=== PATIENT | male | born 1990 | race Caucasian/White ===

== ENCOUNTER 2016-09-22 20:39 | Emergency (ER) | payer BC ==
--- NOTE | 2016-09-22 21:22 | RAD ---
INDICATION: Left knee injury. TECHNIQUE: 4 views of the left knee were obtained. FINDINGS: The bones are in normal alignment. No joint effusion or fracture is seen. There is a small benign sclerotic lesion in the proximal tibial metaphysis. Joint spaces appear maintained. IMPRESSION: NO EVIDENCE FOR FRACTURE.
--- NOTE | 2016-09-22 21:43 | UC ---
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 HAS HISTORY OF PAST PATELLAR DISLOCATION TO SAME KNEE. UNABLE TO BEAR WEIGHT AFTER INJURY DUE TO IMMEDIATE FEELING OF LEFT KNEE INSTABILITY. NO DEFORMITY OF KNEE NOTED. KNEE CONTINUES TO FEEL UNSTABLE. - History of Current Complaint Chief Complaint: UCLowerExtremity Stated Complaint: knee injury Time Seen by Provider: 09/22/16 20:52 Hx Obtained From: Patient Onset/Duration: Sudden Onset, Lasting Hours, Still Present Severity Initially: Moderate Severity Currently: Moderate Character: Dull, Aching, Spasmodic Aggravating Factor(s): Movement, Weight Bearing, Prolonged Standing, Stairs Alleviating Factor(s): Rest, Position, Cold Associated Signs And Symptoms: Positive: Swelling. Negative: Numbness, Tingling Able to Bear Weight: No - Risk Factors Septic Arthritis Risk Factor: Negative Gout Risk Factor: Negative - Allergies/Home Medications Allergies/Adverse Reactions: Allergies Allergy/AdvReac Type Severity Reaction Status Date / Time Penicillins Allergy Severe Hives Verified 09/22/16 20:50 Sulfa Antibiotics Allergy Severe Hives Verified 09/22/16 20:50 Home Medications: Home Medications Ibuprofen TAB* [Advil TAB*] 600 mg PO PRN 09/22/16 [History] PMH/Surg Hx/FS Hx/Imm Hx Previously Healthy: Yes - Surgical History Surgical History: Yes Surgery Procedure, Year, and Place: 7 SURGERIES ON RIGHT FOOT, TONSILLECTOMY - Family History Known Family History: Negative: Other - NO JOINT LAXITY; CONNECTIVE TISSUE DISORDER - Social History Occupation: Employed Full-time Lives: With Family Alcohol Use: None Substance Use Type: None Smoking Status (MU): Never Smoked Tobacco Review of Systems Constitutional: Negative Skin: Negative Eyes: Negative ENT: Negative Respiratory: Negative Cardiovascular: Negative Gastrointestinal: Negative Genitourinary: Negative Motor: Negative Neurovascular: Negative Musculoskeletal: Arthralgia, Myalgia Neurological: Negative Psychological: Negative All Other Systems Reviewed And Are Negative: Yes Physical Exam Triage Information Reviewed: Yes Appearance: Well-Appearing, No Pain Distress, Well-Nourished Vital Signs: Initial Vital Signs Temp 99 F 09/22/16 20:46 Pulse 73 09/22/16 20:46 Resp 16 09/22/16 20:46 BP 148/79 09/22/16 20:46 Pulse Ox 98 09/22/16 20:46 Vital Signs Reviewed: Yes Eye Exam: Normal Eyes: Positive: Conjunctiva Clear ENT Exam: Normal ENT: Positive: Normal ENT inspection Dental Exam: Normal Neck exam: Normal Neck: Positive: Supple, Nontender, No Lymphadenopathy Respiratory Exam: Normal Respiratory: Positive: Chest non-tender, Lungs clear, Normal breath sounds, No respiratory distress, No accessory muscle use Cardiovascular Exam: Normal Cardiovascular: Positive: RRR, No Murmur, Pulses Normal, Brisk Capillary Refill Abdominal Exam: Normal Musculoskeletal: Positive: Strength Limited @ - LEFT KNEE INJURY, ROM Limited @ - LEFT KNEE INJURY, Edema @ - LEFT KNEE INJURY Neurological Exam: Normal Psychological Exam: Normal Skin Exam: Normal Knee Pain Course/Dx - Differential Dx/Diagnosis Differential Diagnosis/HQI/PQRI: Fracture (Closed), Internal Derangement Of Knee , Hiland-Schlatter Disease, Patellofemoral Syndrome, Sprain, Strain Provider Diagnoses: LEFT KNEE INTERNAL INJURY - Physician Notifications Instructed by Provider To: Have Pt Call For Appt. Discharge - Discharge Plan Condition: Stable Disposition: HOME Patient Education Materials: Knee Sprain (ED), Crutch Instructions (ED), Knee Immobilizer (ED) Forms: *Work Release Referrals: Oma Becker MD [Primary Care Provider] - Pete Jaramillo MD [Medical Doctor] - Additional Instructions: PHYSICAL THERAPY REFERRAL: You have been prescribed physical therapy. Treatments may include stretching, exercise, application of heat or cold, and other modalities. After an injury, PT can reduce swelling and pain. In recovery, PT is used to restore mobility and strength. Your specific treatment goals are: __x___ Reduction of Swelling (EGS, US, ice as needed) ___x__ Pain Reduction (EGS, US, ice as needed) ____x_ TENS Pack Fitting and Instruction Wound Hydrotherapy ____x_ Preservation of Mobility __x___ Anglican of Mobility ___x__ Strength Anglican __x___ Work or Sports Hardening This instruction sheet also serves as your PHYSICAL THERAPY REFERRAL! Please take it with you to the therapist, so he/she will be aware of your diagnosis and treatment plan. You may see the physical therapist of your choice for these treatments, but may wish to check with your insurance to be sure the provider you select is covered. It's important to see the doctor to whom you have been referred for follow up.
== END 2016-09-22 22:03 | disposition home or self-care (01) ==
LOC: UCEAST 20:39
DX: S89.82XA Other specified injuries of left lower leg, initial encounter (principal); X50.1XXA Overexertion from prolonged static or awkward postures, initial encounter; Y93.75 Activity, martial arts; Y92.9 Unspecified place or not applicable; Z88.0 Allergy status to penicillin; Z88.2 Allergy status to sulfonamides
CPT/HCPCS: 99202; G0463

== ENCOUNTER 2016-11-12 07:00 | Day surgery (SDC) | payer BC ==
[~2016-11-12 07:00] MED LIST: Buffered Lidocaine 0.9% SYRIN* 5 ML/SYR SYRINGE INTRADERM ONE; Dexamethasone IV* 4 MG/ML 1 ML (4 MG) IV SLOW PU ONE; Famotidine IV* 10 MG/ML 2 ML (20 mg) IV ONE
[2016-11-12] MEDS ORDERED: Clindamycin 900 MG IVPREMIX(* 900 MG/50 ML SDV IV ONE (07:05)
[2016-11-12] MEDS ORDERED: Dexamethasone IV* 4 MG/ML 1 ML (4 MG) ONE (07:05)
[2016-11-12] MEDS ORDERED: Famotidine IV* 10 MG/ML 2 ML (20 mg) ONE (07:05)
[2016-11-12] MEDS ORDERED: Buffered Lidocaine 0.9% SYRIN* 5 ML/SYR SYRINGE ONE (07:06)
[2016-11-12] MEDS ORDERED: EPINEPHrine AMP 1 MG/ML ONE (07:54)
[2016-11-12] MEDS ORDERED: Midazolam* 1 MG/ML 5 ML VIAL (5 MG) ONE ×2 (08:13→08:35)
[2016-11-12] MEDS ORDERED: Atracurium* 10 MG/ML 10 ML VIAL ONE (08:13)
[2016-11-12] MEDS ORDERED: fentaNYL* 50 MCG/ML 5 ML VIAL (250 MCG VIAL) ONE (08:13)
[2016-11-12] MEDS ORDERED: Ketorolac INJ* 30 MG/ML 1 ML VIAL ONE (08:14)
[2016-11-12] MEDS ORDERED: Propofol* 10 MG/ML 20 ML BTL IV PUSH ONE (08:14)
[2016-11-12] MEDS ORDERED: Ondansetron INJ* 2 MG/ML VIAL ONE (08:14)
[2016-11-12] MEDS ORDERED: ROPIVACAINE 5 MG/ML 30 ML BTL (0.5%) ONE (08:14)
[2016-11-12] MEDS ORDERED: Scopolamine 1.5 mg* PATCH TRANSDERM PRN (12:19)
[2016-11-12] MEDS ORDERED: Ondansetron INJ* 2 MG/ML VIAL IV PRN (12:19)
[2016-11-12] MEDS ORDERED: oxyCODONE/Acetamin 5/325 MG* TAB PO PRN (12:19)
[2016-11-12] MEDS ORDERED: DiMENhydriNATE IV* 50 MG/ML VIAL IV PUSH PRN (12:19)
[2016-11-12] MEDS ORDERED: HYDROmorphone INJ* 1 MG/ML CARPUJECT SYRINGE IV PRN (12:19)
[2016-11-12] MEDS ORDERED: fentaNYL* 50 MCG/ML 2 ML VIAL (100 MCG VIAL) ONE (13:21)
[2016-11-12] MEDS: fentaNYL* 50 MCG/ML 2 ML VIAL (100 MCG VIAL) IV PRN ×2 (13:22→13:35)
[2016-11-12 14:14] VITALS: BP 129/89
--- NOTE | 2016-11-13 12:06 | OP ---
OPERATIVE REPORT: DATE OF OPERATION: 11/12/16 DATE OF : 89 ATTENDING SURGEON: Reggie Lennon MD. LIGHT TECHNICIAN: FREDY Mejia. A physician legal document assistant was required for the length of the procedure for assistance with retraction and instrumentation. ANESTHESIOLOGIST: Dr. Baron Del Castillo. ANESTHESIA: General anesthesia, regional anesthesia. PRE-OP DIAGNOSIS: Left knee anterior cruciate ligament tear. POST-OP DIAGNOSIS: Left knee anterior cruciate ligament tear. OPERATIVE PROCEDURE: 1. Left knee arthroscopic anterior cruciate ligament, ACL reconstruction with bone- patella-bone autograft. 2. Left knee arthroscopic anterior synovectomy. ANTIBIOTICS: Clindamycin 900 mg IV. IV FLUIDS: 1100 cc crystalloid. TOURNIQUET TIME: 60 minutes up, 21 minutes down, 67 minutes up for a total of 127 minutes up, with 21 minutes in between segments of inflation, insufflated to 300 mmHg. COMPLICATIONS: None. SPECIMENS: None. IMPLANTS: Mitek April screws, 8 x 23 mm and 9 x 23 mm. 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 He was eventually diagnosed with an ACL tear by MRI imaging. I discussed nonoperative and operative management of the patient's injury and he decided on operative management. The patient had significant laxity with Josie on physical exam as well as significant apprehension with pivot shift test. MRI from 10/08/16 demonstrated clear disruption of posterior fibers at a minimum, determined to be at least high grade partial thickness by me and read as full thickness by radiology. The patient opted for surgical management. Discussed risks and potential complications with the patient. These include bleeding, infection, nerve or blood vessel entry, blood clot, ACL re-rupture, knee pain, knee arthritis. DESCRIPTION OF PROCEDURE: Preoperative written consent was obtained. Operative extremity was marked in preoperative holding. The patient had the hair shaved off about his left knee in preoperative holding. The patient was taken back to the operating room and a regional anesthetic block was performed by anesthesia. The patient was then sedated and general anesthesia performed. With the patient under general anesthesia, I did a physical exam, which demonstrated increased laxity with Josie's test and a shift with pivot shift testing. A tourniquet was placed about the left proximal thigh but not yet inflated. A lateral side post was placed along side of the bed. The patient's lower extremity was prepped from the foot to proximal thigh, with chlorhexidine and then with ChloraPrep. The patient's left lower extremity was draped. A surgical time-out was performed. Esmarch was applied and the tourniquet was elevated to 300 mmHg. Anterior lateral knee arthroscopy portal was established using standard technique. Diagnostic arthroscopy was commenced. No lesions about the patellofemoral compartment were noted. I then dropped down to the medial compartment and noted no meniscal injury, although there was some undulations to the meniscus and so I made a mental note to probe the posterior root of the medial meniscus. I did note some articular cartilage injury. With the knee in almost full extension, it was noted to be at the midpoint from anterior to posterior and at the more central side of the medial femoral condyle. There looked to be some partial thickness, lower grade cobblestoning of the articular cartilage. I moved to the intracondylar notch where there was a ligament mucosum. There was some clear damage to the ACL fibers visible and some surrounding red synovitis. I then proceeded to the lateral compartment, where there was no lateral meniscal tear or articular cartilage injury. While visualizing the medial compartment, I established an anteromedial portal under direct visualization. I established this portal such that I knew I would be able to probe the posterior horn and roots of the medial meniscus. This portal was established. I probed the posterior horn of the medial meniscus and found there to be no tear. I probed the rest of the meniscus as well and no tear was palpable. I next probed along the cobblestones of the medial femoral condyle central partial thickness articular cartilage lesions. There was no clear unstable articular cartilage lesion. These seemed fortunately very low- grade partial thickness. I next moved to the intracondylar notch, with my working instrument through the anteromedial portal, I used an arthroscopic shaver to remove the ligamentum mucosum. I next used an arthroscopic probe to probe the ACL. There was significant damage to the proximal aspect of the ACL. I probed with both the arthroscopic probe as well as with the arthroscopic shaver, the latter not oscillating. There appeared to be a full thickness or very high grade partial thickness tear in the mid and proximal aspect of the ACL. I debrided with the arthroscopic shaver some proximal torn fibers of the ACL. At this point, I decided that an ACL reconstruction would in [facility] be performed. We moved instruments from the knee. Applied the [facility] knee positioner to the table and placed the foot of the patient in it. Replaced the arthroscope and the arthroscopic shaver in the knee and completed removal of torn proximal ACL fibers and then noted excellent visualization of the lateral wall intercondylar notch. Removed instruments arthroscopically. Room lights turned on. I made an anterior midline longitudinal skin incision from superficial to the mid patella to mid distal end of the tibial tubercle. I switched knives and then continued my dissection deep to the level of the paratenon. I severed subcutaneous tissue off the paratenon both medially and laterally. I then made a midline longitudinal incision in the paratenon and reflected that off the patellar tendon. I measured the width of the patellar tendon. It was proximally 33 mm in width. I used a double bladed knife, with blades 10 mm , to incise the inner third of the patellar tendon. I demarcated with electrocautery, my future bone cuts in the patella as well as the tibial tubercle, and then I used an oscillating saw to remove my bone blocks, 23 mm proximally and 28 mm distally. I removed graft from the knee. I next closed the patellar tendon with buried [id number] stitches using first Ethibond 0 suture and then Vicryl 0 suture. I next dropped the tourniquet. I next moved to the back table where I prepared my autograft. I debrided some bone from the bone blocks and contoured my grafts accordingly. I took some length off the tibial tubercle bone plug. I placed one stitch proximally and 2 distally in the graft, each using FiberWire #5 suture. I placed several whip stitches in the tendon and then placed the suture through bone blocks. I placed the graft on the back table under tension, with a moist sponge wrapped around it. I next returned to the knee. Esmarch was reapplied and tourniquet was re- elevated at 300 mmHg. I made a new anterolateral portal, through the open incision. I next flexed the knee to a 110 degrees of flexion and made my accessory anteromedial portal. This I would instrument through during my ACL reconstruction. I performed a notch plasty. I next, marked the 1:30 o'clock position in the intracondylar notch with the knee in 90 degrees of flexion. I then hyperflexed the knee and placed my guidepin using a 7 mm around the back guide. My pin exited the lateral femur about the iliotibial band, perhaps a third of the way from anterior to posterior in that structure. I next, placed a slide to protect the medial femoral condyle and then placed my acorn reamer, 10 mm. I drilled a tunnel 30 mm along, 10 mm in width. I next removed the drill and pin and shaved up the detritus of the tunnel. I viewed the tunnel position from anterolateral and anteromedial and liked it. I next returned the knee to 90 degrees of flexion. I next placed my guidepin for my tibial tunnel. I did so with my guide in 55 degrees setting. I did so after debriding much of the distal stump of the ACL fibers. A pin was placed and fluted reamer, 10 mm was used to make the tibial tunnel. I shaved up the detritus. I next placed a passing suture through my tunnels and used it to pass my graft into the tunnels. I used a manager retail sales for the femoral tunnel, then tapped and then placed a 8 x 23 mm biocomposite April screw. Purchase was excellent. I next placed the knee in full extension. My graft distally was just at the distal aperture of the tibial tunnel. I tapped and then placed a 9 x 23 mm screw in the tibia. Purchase was excellent. I placed a screw with a posterior drawer test being applied to the knee. I performed a Josie and anterior drawer on the knee and found the knee to be excellently tight. The knee easily fully extended. I next placed the arthroscope back into the knee and imaged the ACL with the knee in a variety of positions and the graft looked to be in excellent position. I cut the sutures distally. I next grafted the bone defects at the patella and tibial tubercle. I used bone from the bone plugs that I had contoured, autografted. I also used allograft bone chips. I filled in these defects nicely. I next closed the paratenon, using both running and [id number] stitches using Vicryl 0 suture. I next closed the subcutaneous tissue with buried simple stitches using Vicryl 2.0 suture. I closed the long open incision with a running stitch using nylon 4.0 suture. I closed the arthroscopic skin incisions with figure-of- eight stitches using nylon 4.0 suture. Xeroform was applied to the incisions followed by 4x4's and an ABD. Sterile Webril, Robbie bandage from foot to proximal thigh. The tourniquet had been dropped during the latter stages of the case with no subsequent increase in bleeding. Tourniquet had been dropped just after the second screw was placed. A cling unit was placed over the knee and the knee was placed in a knee brace locked in extension. The patient was awakened and transferred to the PACU. The patient was discharged home when medically stable. The patient will receive Percocet as needed at home. He will be on aspirin twice daily for 2 weeks for DVT prophylaxis and clindamycin 300 mg p.o. t.i.d. x5 days for infection prophylaxis. He has a physical therapy appointment scheduled on Tuesday , in 3 days. I will keep him nonweightbearing until that time with the knee brace locked in extension and crutches. He will follow my protocol starting with the physical therapy session. He will follow up in clinic with me in 10 to 14 days postoperatively. [id number]/[facility] #: [id number] DILLAN
[2016-11-15] MEDS ORDERED: Scopolomine PATCH Remove* 1 NOTE MISC PATCH OFF ONE (12:20)
== END 2016-11-12 14:50 | disposition home or self-care (01) ==
LOC: OR 07:00
PROVIDERS: ATTEND Orthopaedic Surgery
DX: S83.512A Sprain of anterior cruciate ligament of left knee, initial encounter (principal); G89.18 Other acute postprocedural pain; X50.9XXA Other and unspecified overexertion or strenuous movements or postures, initial encounter; Y93.59 Activity, other involving other sports and athletics played individually; Y92.9 Unspecified place or not applicable; Z88.0 Allergy status to penicillin; Z88.2 Allergy status to sulfonamides
CPT/HCPCS: C1713; C1776; J0171; J1100; J1885; J2250; J2405; J2704; J2795; J3010